=== PATIENT | male | born 1960 | race Two or more races ===

== ENCOUNTER 2021-07-08 08:43 | Outpatient (CLI) | payer OTHER | END 2021-07-08 15:00 | disposition home or self-care (01) | LOC: LAB 08:43 | PROVIDERS: ATTEND Orthopaedic Surgery | DX: D64.9 Anemia, unspecified (principal); D68.8 Other specified coagulation defects; N39.0 Urinary tract infection, site not specified; A49.02 Methicillin resistant Staphylococcus aureus infection, unspecified site ==

== ENCOUNTER 2021-07-17 07:46 | Outpatient (CLI) | payer OTHER | END 2021-07-17 07:54 | disposition home or self-care (01) | LOC: EKG 07:46 | PROVIDERS: ATTEND Orthopaedic Surgery | DX: Z76.89 Persons encountering health services in other specified circumstances (principal); I49.9 Cardiac arrhythmia, unspecified; I10 Essential (primary) hypertension ==

== ENCOUNTER 2021-07-19 05:30 | Day surgery (SDC) | payer OTHER ==
[~2021-07-19] VITALS: Ht 172.7 cm; Wt 87.1 kg
== END 2021-07-19 13:45 | disposition home or self-care (01) ==
LOC: CIR.AMB 05:30
PROVIDERS: ATTEND Orthopaedic Surgery
DX: M23.221 Derangement of posterior horn of medial meniscus due to old tear or injury, right knee (principal); M12.261 Villonodular synovitis (pigmented), right knee; M22.41 Chondromalacia patellae, right knee; Z20.822 Contact with and (suspected) exposure to COVID-19